=== PATIENT | male | born 1945 | race Caucasian/White ===

== ENCOUNTER 2021-04-25 07:43 | Observation (INO) | payer OTHER ==
[~2021-04-25] VITALS: Ht 175.2 cm; Wt 73.5 kg
[2021-04-25 07:47] VITALS: BP 216/98
[2021-04-25] MEDS ORDERED: BP PILL (07:49)
[2021-04-25 08:16] LABS: BASO # 0.1 10*3/uL (0.0-0.1); BASO % 0.6 % (0.0-1.0); EOS # 0.3 10*3/uL (0.0-0.4); EOS % 3.3 % (1.0-4.0); HEMATOCRIT 46.3 % (42.0-52.0); LYMPH # 1.7 10*3/uL (1.3-4.4); LYMPH % 20.6 % (27.0-41.0); MEAN CELL VOLUME 89.9 fl (80.0-94.0); MEAN CORPUSCULAR HGB 30.3 pg (27.0-31.0); MEAN CORPUSCULAR HGB CONC 33.7 g/dl (33.0-37.0); MEAN PLATELET VOLUME 9.8 fl (9.6-12.3); MONO # 0.7 10*3/uL (0.1-1.0); MONO % 8.1 % (3.0-9.0); NEUT # 5.6 10*3/uL (2.3-7.9); NEUT % 67.2 % (47.0-73.0); PLATELET COUNT AUTOMATED 260 10*3/uL (130-400); RED BLOOD COUNT 5.15 10*6/uL (4.50-5.90); RED CELL DISTRI WIDTH 13.5 % (0-14.5); WHITE BLOOD COUNT 8.3 10*3/uL (4.8-10.8)
[2021-04-25 08:31] LABS: ALBUMIN 3.1 gm/dl (3.1-4.5); ALKALINE PHOSPHATASE 63 U/L (45-117); BUN 16 mg/dl (7-24); CHLORIDE 110 mmol/L (98-107); CREATININE 1.16 mg/dL (0.70-1.30); POTASSIUM 3.6 mmol/L (3.5-5.1); SGOT/AST 12 IU/L (3-35); SGPT/ALT 18 U/L (12-78); SODIUM 143 mmol/L (136-145); TOTAL PROTEIN 6.8 gm/dL (6.4-8.2)
[2021-04-25 09:38] VITALS: BP 188/91
[2021-04-25] MEDS ORDERED: SILDENAFIL20 M1 PO (10:42)
[2021-04-25] MEDS ORDERED: LIPITOR40 MG PO (10:42)
[2021-04-25 13:19] VITALS: BP 193/83
[2021-04-25 15:31] VITALS: BP 190/86
[2021-04-25 21:00] VITALS: BP 189/72
[2021-04-26 00:44] VITALS: BP 168/60
[2021-04-26 06:44] LABS: BASO # 0.1 10*3/uL (0.0-0.1); BASO % 0.5 % (0.0-1.0); EOS # 0.3 10*3/uL (0.0-0.4); EOS % 3.2 % (1.0-4.0); HEMATOCRIT 45.3 % (42.0-52.0); LYMPH # 2.5 10*3/uL (1.3-4.4); LYMPH % 25.8 % (27.0-41.0); MEAN CELL VOLUME 89.7 fl (80.0-94.0); MEAN CORPUSCULAR HGB 29.7 pg (27.0-31.0); MEAN CORPUSCULAR HGB CONC 33.1 g/dl (33.0-37.0); MEAN PLATELET VOLUME 10.1 fl (9.6-12.3); MONO # 0.7 10*3/uL (0.1-1.0); MONO % 6.8 % (3.0-9.0); NEUT # 6.1 10*3/uL (2.3-7.9); NEUT % 63.4 % (47.0-73.0); PLATELET COUNT AUTOMATED 248 10*3/uL (130-400); RED BLOOD COUNT 5.05 10*6/uL (4.50-5.90); RED CELL DISTRI WIDTH 13.2 % (0-14.5); WHITE BLOOD COUNT 9.6 10*3/uL (4.8-10.8)
[2021-04-26 06:48] LABS: BUN 12 mg/dl (7-24); CHLORIDE 108 mmol/L (98-107); CHOLESTEROL 177 mg/dL (<200); LDL CHOLESTEROL 101 mg/dL (9-159); POTASSIUM 3.6 mmol/L (3.5-5.1); SODIUM 142 mmol/L (136-145); TRIGLYCERIDES 133 mg/dl (<150)
[2021-04-26 10:03] VITALS: BP 180/80
[2021-04-26] MEDS ORDERED: ASPIRIN ADULT L81 M2 PO (12:28)
[2021-04-26] MEDS ORDERED: NORVASC2.5 MG PO (12:28)
== END 2021-04-26 13:10 | disposition home or self-care (01) ==
LOC: ED 07:43 → EDHOLD 09:11
PROVIDERS: Emergency Medicine; Internal Medicine; ADMIT Emergency Medicine; ATTEND Emergency Medicine
DX: I63.9 Cerebral infarction, unspecified (principal); I16.1 Hypertensive emergency; R29.90 Unspecified symptoms and signs involving the nervous system; E87.8 Other disorders of electrolyte and fluid balance, not elsewhere classified; E78.5 Hyperlipidemia, unspecified; Z72.0 Tobacco use; I10 Essential (primary) hypertension; F17.210 Nicotine dependence, cigarettes, uncomplicated; Z71.6 Tobacco abuse counseling; R00.1 Bradycardia, unspecified; E83.41 Hypermagnesemia; E55.9 Vitamin D deficiency, unspecified; E44.0 Moderate protein-calorie malnutrition; Z79.899 Other long term (current) drug therapy; Z79.01 Long term (current) use of anticoagulants